=== PATIENT | female | born 1980 | race Hispanic/Latino ===

== ENCOUNTER → 2022-06-14 | Outpatient (CLI) | payer BC ==
[~2022-06-14] MED LIST: GADOTERATE MEGLUMINE 10 MMOL/20 ML VIAL IV ONE
== END | disposition home or self-care (01) ==
LOC: RAH 07:58
PROVIDERS: ATTEND Family Medicine
DX: D32.0 Benign neoplasm of cerebral meninges (principal); R41.1 Anterograde amnesia
CPT/HCPCS: 70553; A9575

== ENCOUNTER 2023-06-11 05:35 | Emergency (ER) | payer BC ==
[~2023-06-11] VITALS: Ht 160 cm; Wt 68.9 kg
[2023-06-11 05:37] VITALS: BP 156/98; PULSE 70; RESP 18
[2023-06-11] MEDS ORDERED: IBUP-1493 PO (06:08)
[2023-06-11] MEDS ORDERED: DIPH,PERTUSS(ACELL),TET VAC/PF 0.5 ML VIAL IM ONE (06:30)
== END 2023-06-11 06:29 | disposition home or self-care (01) ==
LOC: EDH 05:35
DX: T63.2X1A Toxic effect of venom of scorpion, accidental (unintentional), initial encounter (principal); I10 Essential (primary) hypertension; Y92.89 Other specified places as the place of occurrence of the external cause
CPT/HCPCS: 81025; 90471; 90715